=== PATIENT | male | born 1970 | race Caucasian/White ===

== ENCOUNTER 2020-05-12 14:25 | Emergency (ER) | payer SELFPAY ==
--- NOTE | 2020-05-12 15:05 | TELE ---
HPI Do you have fever,cough or shortness of breath?: No - General Reason For Visit: COVID TEST History Source: Patient Past History - Travel History Traveled outside of the country in the last 30 days: No Close contact w/someone who was outside of country & ill: No Review of Systems - Review of Systems Able to Perform ROS?: Yes Comments:: 05/12/20 16:06 CONSTITUTIONAL: Absent: fever, chills, diaphoresis, generalized weakness, malaise, loss of appetite HEENT: Absent: rhinorrhea, nasal congestion, throat pain, throat swelling, difficulty swallowing, mouth swelling, ear pain, eye pain, visual Changes CARDIOVASCULAR: Absent: chest pain, loss of consciousness, palpitations, irregular heart rate, peripheral edema RESPIRATORY: Absent: cough, shortness of breath, dyspnea with exertion, orthopnea, wheezing, stridor, hemoptysis GASTROINTESTINAL: Absent: abdominal pain, abdominal distension, nausea, vomiting, diarrhea, constipation, melena, hematochezia SKIN: Absent: rash, itching, pallor NEUROLOGIC: Absent: headache, focal weakness or paresthesias, dizziness, unsteady gait, seizure, mental status changes, bladder or bowel incontinence PSYCHIATRIC: Absent: anxiety, depression, suicidal or homicidal ideation, hallucinations. Limited Zambian proficient: No *Physical Exam - Physical Exam 05/12/20 16:07 GENERAL: Well developed, well nourished. Awake and alert. No acute distress. HEENT: Normocephalic, atraumatic. PERRLA, EOMI. NECK: Supple. Full ROM. PULMONARY: No evidence of respiratory distress. EXTREMITIES: No cyanosis. SKIN: Warm and dry. Normal capillary refill. No rashes. No jaundice. NEUROLOGICAL: Alert, awake, appropriate. PSYCHIATRIC: Cooperative. Good eye contact. Appropriate mood and affect. - Medical Decision Making 05/12/20 15:05 Spoke with patient's . Patient is currently on a flight from [place] returning to [facility]. He will begin around 6 PM. Advised to have them call me when he lands back to [facility]. 05/12/20 16:08 The patient is back from [place], currently in [facility]. He presents to telehealth for COVID swab post travel. He has no medical history, no symptoms currently. He states that he has been monitoring for symptoms of COVID while traveling abroad. He could like a COVID swab at this time post travel. A/P: Need for COVID test Pt appears well on video chat Will order COVID swab, sent to [facility] Isolation precautions given. Discharge Diagnosis at time of Disposition: Counseled about COVID-19 virus infection - Referrals - Patient Instructions
== END 2020-05-12 16:09 | disposition home or self-care (01) ==
LOC: JVIRT 14:25 → EDBD 14:25 → JVIRT 16:09
DX: Z11.59 Encounter for screening for other viral diseases (principal)
CPT/HCPCS: Q3014-GT; U0003

== ENCOUNTER 2020-05-22 16:38 | Emergency (ER) | payer OTHER ==
--- NOTE | 2020-05-22 17:17 | TELE ---
HPI Do you have fever,cough or shortness of breath?: No - General Reason For Visit: COVID TEST History Source: Patient Exam Limitations: No Limitations - History of Present Illness 05/22/20 17:14 Patient is a 49-year-old male with no past medical history who participated in a virtual urgent care visit for routine covid testing. His girlfriend is symptomatic with fever, body aches, upset stomach and fatigue. He has not had any known COVID contacts. The patient recently traveled to [place], but on his return was already tested for COVID which was negative. He would like to be tested again secondary to his girlfriend having covid-like symptoms. The patient denies any allergies to medications. He is completely asymptomatic at this time. Review of Systems - Review of Systems Comments:: 05/22/20 17:15 - Review of Systems Able to Perform ROS?: Yes Constitutional: No: Fever, Chills, Loss of Appetite, Night Sweats, Weakness; positive: Routine COVID testing HEENTM: No: Eye Pain, Vision changes, Ear Pain, Throat Pain, Throat Swelling, Mouth Pain, Difficulty Swallowing Respiratory: No: Cough, Shortness of Breath, Wheezing, Sputum Production Cardiac (ROS): No: Chest Pain, Chest Tightness, Palpitations, Irregular Heart Beat, Edema ABD/GI: No: Nausea, Vomiting, Abdominal Pain, Diarrhea : No Dysuria, No Hematuria, No Frequency, No Urgency Musculoskeletal: No: Muscle Pain, Back Pain, Joint Pain, Muscle Weakness, Neck Pain Integumentary: No: Lesions, Rash Neurological: No: Headache, Numbness, Tingling, Weakness, Speech Difficulties *Physical Exam - Physical Exam 05/22/20 17:16 - Physical Exam General Appearance: Nourished, Appropriately Dressed, No Distress HEENT: EOMI, Normal Voice, Hearing Grossly Normal Neck: No Decreased range of motion Respiratory/Chest: Normal chest excursion appreciated, No Accessory Muscle Use Gastrointestinal/Abdominal: No distention Musculoskeletal: Normal Inspection Integumentary: Normal Color, Dry. No Rash Neurologic: smoke chaser II-XII NML intact, Fully Oriented, Alert, Normal Mood/Affect, Normal Response - Medical Decision Making 05/22/20 17:16 Assessment: Patient is a 49-year-old male who participated in a virtual urgent care visit for routine COVID testing Plan: -COVID swab ordered -COVID counseling given, isolation precautions reviewed -Patient to proceed to the [facility] for testing -He understands and agrees with this treatment plan Discharge Diagnosis at time of Disposition: Counseled about COVID-19 virus infection - Referrals - Patient Instructions Discharge Instructions: [facility] Instructions, [facility] COVID-19 Isolation Protocol Additional Discharge Instructions: You were seen via a telehealth visit and tested for COVID today. You should follow isolation precautions as per [facility] guidelines. Thank you for participating in our telehealth medicine program. If you have any worsening symptoms such as high fever, shaking chills, profuse vomiting or any other worsening symptoms you should go to your local emergency department immediately or follow up with your primary care doctor immediately. If you become symptomatic: Take Tylenol 650 mg every 6 hours as needed for fever or pain. You may take Robitussin or other [id number] cough syrup. Follow the dosing instructions on the bottle. Warm tea, honey, and salt water gargles may help your symptoms. Please take precautions and self quarantine for 2 weeks and follow-up with your primary care doctor and the Department of Health. Return to the nearest emergency department for shortness of breath, difficulty breathing, chest pain, or if you have any changes in your symptoms. - Discharge Disposition: HOME Condition at time of Disposition: Stable
== END 2020-05-22 17:17 | disposition home or self-care (01) ==
LOC: JVIRT 16:38
DX: Z11.59 Encounter for screening for other viral diseases (principal)
CPT/HCPCS: C9803; Q3014-GT; U0003